=== PATIENT | male | born 1985 | race Caucasian/White ===

== ENCOUNTER → 2019-04-15 17:36 | Outpatient (CLI) | payer MEDICARE ==
[2019-04-06 09:54] VITALS: BMI 27.9
[~2019-04-15 17:36] MED LIST: ADDERALL 15 MG15 MG PO; ASCORBIC ACID500 MG PO; DANTRIUM50 MG PO; FLOMAX0.4 MG PO; LYRICA150 MG PO; MACROBID100 MG PO; METFORMIN HCL500 M1 PO; MYRBETRIQ50 MG PO; NEURONTIN600 MG PO
== END | disposition home or self-care (01) ==
LOC: D.LABREF 17:36
PROVIDERS: ATTEND Urology
DX: N39.0 Urinary tract infection, site not specified (principal)